=== PATIENT | male | born 1950 ===

== ENCOUNTER → 2024-05-11 | Outpatient (REF) | payer MEDICARE | LOC: M LAB REF 17:19 | PROVIDERS: ATTEND Student in an Organized Health Care Education/Training Program | DX: K92.2 Gastrointestinal hemorrhage, unspecified (principal) ==

== ENCOUNTER → 2024-05-15 | Outpatient (REF) | payer MEDICARE | LOC: M LAB REF 16:42 | PROVIDERS: ATTEND Family Medicine Adult Medicine | DX: R19.7 Diarrhea, unspecified (principal) ==